=== PATIENT | female | born 1950 | race African-American/Black ===

== ENCOUNTER 2017-02-26 21:41 | Inpatient (IN) | payer OTHER, BC ==
[~2017-02-26] VITALS: Ht 170.2 cm; Wt 87.6 kg
--- NOTE | ~2017-02-26 | HC ---
[facility] [place] [address] CONSULTATION Name: NATALIA EHLM Dheeraj Room #: 438-P [facility] IN .R.#: [id number] Admission: 02/27/17 Attend Phys: Dc Altamirano MD Discharge: Date of : 51 Report #: [id number] THIS REPORT FOR: //name// CC: Dc Ingram HISTORY OF PRESENT ILLNESS: This patient presented to the Emergency Room with complaints of increasing shortness of breath and a nonproductive cough. She denied shaking chills or fever. 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 She has been followed by Dr. Aguilar since that original surgery in 2012 and is scheduled to undergo CT scanning for further evaluation. She is receiving long-term Tuesday, Tuesday, Tuesday hemodialysis through Dr. Edmond for end-stage renal disease and prior hypertension. PAST MEDICAL HISTORY: Has also been significant for anemia of chronic disease along with congestive heart failure. Her cancer diagnosis dated to 08/[address] Juárez resecting an 8.2 cm deep intramuscular mass revealing a high grade pleomorphic sarcoma. This tumor contained necrosis and was highly proliferative with an elevated Ki-67 60% to 70% and 30-40 mitoses per 10 high powered hernandez. She was suspected at that time to have pulmonary metastatic disease, but did not receive any systemic therapy due to her medical comorbidities/chronic renal failure. She was seen by Dr. Betts and received radiation therapy to the initial tumor bed. She was subsequently followed by Dr. Aguilar and in 01/2014 began hemodialysis for worsening renal failure. In 08/2016, one of the right lower lobe metastases approached the thoracic spine and she received further radiation therapy from Dr. Betts with a stereotactic approach to try to prevent complications. ALLERGIES: To IBUPROFEN and SEAFOOD. FAMILY HISTORY: Not contributory. SOCIAL HISTORY: She is a never smoker, nondrinker. REVIEW OF SYSTEMS: As in the history of present illness. MEDICATIONS: As listed on the MFR include allopurinol and sevelamer carbonate. PHYSICAL EXAMINATION: GENERAL: Shows her to be alert. She is currently undergoing hemodialysis. HEENT: Her mouth is clear. NECK: Supple. [facility] [address] [place] [address] CONSULTATION Name: NATALIA HELM Dheeraj Room #: 438-[facility] IN [facility].#: [id number] Admission: 02/27/17 Attend Phys: Dc Altamirano MD Discharge: Date of : 51 Report #: [id number] CHEST: Clear. BREASTS: Show no masses. ABDOMEN: No organomegaly or mass. EXTREMITIES: Show her fistula. SKIN: Normal turgor. NEUROLOGIC: No focal localized signs. PSYCHIATRIC: Not agitated or confused. LYMPHATICS: No palpable supraclavicular or axillary lymphadenopathy. ASSESSMENT: Metastatic high-grade soft tissue sarcoma. PLAN: The patient is to undergo CT scanning and can be reviewed and compared to our previous study from , which I will have clouded over. I would suspect that this will show further disease progression and on the prior scan, she was noted to have a sternal metastasis. She is scheduled to see Dr. Aguilar and follow up after scanning regarding further treatment, which at this point would need to be on a systemic basis. He earlier did not feel that she was a good candidate for Adriamycin and olaratumab though an echocardiogram has not been performed. Other options have included trabectedin and ponatinib. She would not be a candidate for systemic clinical trial. Thanks again for asking us to see her in consultation and allowing me to participate in her care. By: 1342 [id number] Bridgett Solitario MD /nt
--- NOTE | ~2017-02-26 | HC ---
[facility] [place] [address] CONSULTATION Name: NATALIA HELM Dheeraj Room #: 438-P [facility] IN .R.#: [id number] Admission: 02/27/17 Attend Phys: Dc Altamirano MD Discharge: Date of : 51 Report #: [id number] THIS REPORT FOR: //name// CC: Dc Ingram PRIMARY CARE PHYSICIAN: Sean Jackson . REFERRAL PHYSICIAN: Dc Altamirano MD REASON FOR REFERRAL: Cough. HISTORY OF PRESENT ILLNESS: The patient is a 66-year-old -[place] female who presents to emergency room with progressive cough. A pulmonary consultation was requested. The patient has significant medical history. She was diagnosed with sarcoma involving her right thigh in July 2013. About a year and a half ago, she was found to have pulmonary metastases, she believes, in the right lung. She had been undergoing radiation therapy to the chest. More recently, she was now found to have bilateral lung masses felt to be related to metastatic sarcoma. She has been followed by specialty department supervisor. She is also followed by oncologist, Dr. Aguilar. She is also followed by Dr. Hardy for chronic kidney disease. She was in her usual state of health until about 3-2 weeks ago, she started to develop a persistent nonproductive cough. Few days ago, she developed low-grade fever. She also developed mild productive yellowish sputum. She was seen as an outpatient regarding her cough. Thoughts were possibly related to allergies though antihistamines and antibiotics did not seem to help. Otherwise, denies any hemoptysis, chest pain. Denies any recent nausea, vomiting, diarrhea. She denies any history of chronic lung disease. She is a lifetime nonsmoker. She denies any chronic sinusitis or history of asthma. She denies any dyspepsia. PAST MEDICAL HISTORY: As mentioned above, sarcoma involving her right thigh, undergone resection with subsequent radiation therapy, initially diagnosed in July 2013, with known pulmonary metastases. Initially noted about a year and a half ago, now with bilateral pulmonary lung metastases. End-stage renal disease, undergoing hemodialysis. Long history of hypertension. PAST SURGICAL HISTORY: As mentioned above. Hysterectomy, right upper extremity AV fistula, history of dysrhythmias undergoing ablation. [address] [address] CONSULTATION Name: NATALIA HELM Room #: 438-P [facility] IN ..#: [id number] Admission: 02/27/17 Attend Phys: Dc Altamirano MD Discharge: Date of : 51 Report #: [id number] ALLERGIES: IBUPROFEN, SEAFOOD, both cause swelling. HOME MEDICATIONS: List reviewed. Include allopurinol, Renvela. FAMILY HISTORY: Remarkable for hypertension, diabetes mellitus. SOCIAL HISTORY: She is a lifetime nonsmoker. Denies any alcohol use. REVIEW OF SYSTEMS: As mentioned above, otherwise 10-point system review negative. PHYSICAL EXAMINATION: GENERAL: She is awake, alert, in no apparent distress. VITAL SIGNS: Temperature is 98 degrees Fahrenheit, pulse is 75, respiratory rate is 20, blood pressure 134/72 mmHg and saturation 96%. HEENT: Normocephalic, atraumatic. NECK: Supple without any lymphadenopathy or thyromegaly. CHEST: Breath sounds are good. No rales or wheezes. CARDIOVASCULAR: Heart sounds, normal S1, S2. No murmurs or gallop. There is no JVD. There is no carotid bruit. Pulses are 2+/4+ bilaterally. ABDOMEN: Soft, nontender. No organomegaly or masses felt. GENITOURINARY: Deferred. RECTAL: Deferred. EXTREMITIES: There is no edema, cyanosis or clubbing. DIAGNOSTIC AND LABORATORY DATA: Portable chest x-ray shows bilateral lung nodules, possible right-sided infiltrates and/or atelectasis. WBC is 17,300 without bandemia. Platelets are normal. Hemoglobin 7.2. Electrolytes: Sodium 135, potassium 3.6, chloride 96, CO2 is 31, BUN is 31, creatinine 6.3. IMPRESSION: 1. Persistent cough in this 66-year-old -[place]ovenian female with history of sarcoma with known pulmonary metastases. She has had a recent low grade fever with minimally productive yellowish sputum. Acute lower respiratory tract infection is suspected with possible pneumonia. Her bilateral lung nodules may be contributing to her cough. 2. Sarcoma, right thigh, originally diagnosed in 2012, status post resection, radiation now with known bilateral pulmonary metastases. The patient had received the radiation therapy to the chest. She is undergoing ongoing followup with repeat imaging study in fact in the very near future. Radiation lung injury should also be considered. 3. End-stage renal disease, undergoing hemodialysis. 4. Hypertension. 5. Anemia due to chronic disease. RECOMMENDATIONS: Agree with broad spectrum antibiotics for presumed infectious [address] [place] [address] CONSULTATION Name: NATALIA HELM Room #: 438-[facility] IN M.R.#: [id number] Admission: 02/27/17 Attend Phys: Dc Altamirano MD Discharge: Date of : 51 Report #: [id number] process. We will prescribe antitussives p.r.n. Sputum culture if possible. In regards to her lung nodules, I will defer any further workup as she has been followed closely by her specialty department supervisor and also oncologist. I understand the plans are for repeat imaging study next week and possible ongoing therapy for metastatic sarcoma. The findings were discussed with the patient. She voices understanding. Thank you for this consultation. <ELECTRONICALLY SIGNED> By: Clyde Vail MD 02/28/17 1151 [id number] Clyde Vail MD /nt
--- NOTE | ~2017-02-26 | HC ---
[facility] [place] [address] CONSULTATION Name: NATALIA HELM Dheeraj Room #: 438-P [facility] IN ..#: [id number] Admission: 02/27/17 Attend Phys: Dc Altamirano MD Discharge: Date of : 51 Report #: [id number] THIS REPORT FOR: //name// CC: Dc Ingram DATE OF SERVICE: 02/27/2017 NEPHROLOGY CONSULTATION REASON FOR CONSULTATION: End-stage renal disease, requiring dialysis. HISTORY OF PRESENT ILLNESS: This is a very pleasant 66-year-old female who we have known for a long time. She has end-stage renal disease and is a chronic hemodialysis patient. She normally dialyzes on a Tuesday, Tuesday and Tuesday basis at [facility]. She dialyzes on a Tuesday, Tuesday and Tuesday basis. Etiology of her end-stage renal disease is hypertension. She has been dialyzing regularly, including most recently on 02/25/2017. She dialyzes using a right arm fistula and her dialysis has been fairly uncomplicated. The reason for admission is persistent cough. She says this has been getting more severe over the past 3 weeks. It has not been responsive to antitussives. It has also not been responsive to additional ultrafiltration with dialysis. Upon presentation to the emergency room, she had a low-grade fever at 99.3 degrees Fahrenheit. In addition, she had some leukocytosis with white blood cell count 17.0. She had some mild left shift with 83 neutrophils, no bands, 10 lymphs, 5 monocytes and 2 eosinophils. Cultures were drawn and are pending. She was started on ceftriaxone and azithromycin. She tells me that she had a large sweat overnight. No further fever or chills. The cough persists. It has been nonproductive. Additional very pertinent history is that the patient was diagnosed in 2013 with a sarcoma of her right thigh. She received excision and radiation therapy after that. She continues to be followed at [facility] by Dr. Master Aguilar. In fact, she saw him just 6 days ago. There had been some concern of some developing nodules in her lungs. Her last scan had been either late September or early October of 2016. There was one nodule that was concerning enough that she went through a course of 5 doses of radiation therapy to that nodule. When she saw Dr. Aguilar 6 days ago, she expressed the concern of her cough. She was scheduled for repeat scan which was to be done on 03/01/2017. I asked the patient and she is uncertain if this is going to be a CAT scan or a PET scan. PAST MEDICAL HISTORY: Very pertinent for the sarcoma as noted above. She does not recall that any metastatic nodules have ever been biopsied. She has the end-stage renal disease, long-standing hypertension. She also has a history of gout and is chronically on some allopurinol. She has anemia of end-stage renal disease and is chronically on erythropoietin therapy and some vitamin [address] [address] CONSULTATION Name: NATALIA HELM Room #: 438-P [facility] IN M.R.#: [id number] Admission: 02/27/17 Attend Phys: Dc Altamirano MD Discharge: Date of : 51 Report #: [id number] supplementation. She has some secondary hyperparathyroidism. Previous admissions for supraventricular tachycardia, which was paroxysmal. She has had a previous hysterectomy for fibroids. MEDICATIONS: On admission include Renvela 800 mg t.i.d. with meals as a phosphate binder, allopurinol 300 mg daily. She recently was started on an antitussive, but she does not remember what it was. She gets vitamin D in the form of Hectorol, Aranesp for erythropoietin stimulation and iron at dialysis. ALLERGIES: IBUPROFEN, which she says caused her to break out in bruise. FAMILY HISTORY: No one else has been sick in the family recently. SOCIAL HISTORY: The patient is , lives in [place], [place]. She is retired. Nonsmoker. REVIEW OF SYSTEMS: Mainly positive for the cough. her cough was getting more severe. She had a good appetite. She says that has gone down somewhat because of the frequency of the cough. No sputum production. No hemoptysis. No pleuritic pain associated with the cough. Denies palpitations. No nausea or vomiting. No change in bowel habits. Dialysis has been fairly uneventful. No peripheral edema, she is unaware. She had the low-grade fever prior to admission. She had the one sweat last night and she said she had some more sweat about a week ago. No recent visual or hearing changes. PHYSICAL EXAMINATION: GENERAL: Very pleasant 66-year-old female resting comfortably, except when she takes a deep breath when she immediately starts coughing. VITAL SIGNS: Blood pressure 134/72, heart rate 75, temperature 98.1 and oxygen saturation 96%. HEENT EXAMINATION: Shows pupils are equal and reactive. Sclerae nonicteric. Oral mucosa is negative. NECK: Supple, without adenopathy, thyromegaly, JVD or bruit. CHEST: Fairly clear in all lung hernandez. I hear no rales, rhonchi or wheezes. No egophony. BACK: Shows no CVA tenderness. HEART: Has a regular rate and rhythm. ABDOMEN: Has active bowel sounds. It is soft and nontender. No organomegaly or masses. EXTREMITIES: Show no edema. She has a right upper arm fistula in place, with active bruit and thrill. DIAGNOSTIC DATA: Chest x-ray per my review shows a right basilar infiltrate in the potentially right middle lobe, although it is on an AP film only. Also little haziness in the right upper lobe, more dramatic are 3 nodules which appear to be more than a centimeter in size in the periphery of the left lung. [address] [address] CONSULTATION Name: NATALIA HELM Dheeraj Room #: 438[facility] IN [facility].#: [id number] Admission: 02/27/17 Attend Phys: Dc Altamirano MD Discharge: Date of : 51 Report #: [id number] LABORATORY DATA: Sodium 135, potassium 3.3, chloride 96, bicarbonate 32, BUN 29, creatinine 5.9 and calcium 8.4. White count 17.3, hemoglobin 7.3, hematocrit 22.9 and platelets 356,000. Differential as noted above. ASSESSMENT: 1. End-stage renal disease. She is due for dialysis tomorrow. We will order that. 2. Persistent cough. I think there are several components. She had a mild leukocytosis as well as a mild fever. She broke a severe sweat after she got antibiotics overnight, so certainly there does appear to be an infective component. Chest x-ray shows the mild right lower lobe infiltrate in the right upper lobe area that is a bit of concern. She also has these nodules in the left lung periphery. Part of the concern is potential for a post-obstructive process as opposed to her jordana infiltrate/pneumonia. Concerning the left lung nodules, she was set up for followup of her sarcoma, as noted above. We will contact Dr. Aguilar's office tomorrow and discuss with them what is the best course of action. If he was wanting a PET scan as opposed to a CT scan, the PET scan would need to be as an outpatient. Otherwise, the CT scan could be done here tomorrow and we will get oncology involved with that. With multiple nodules, we may want to get a biopsy to see what cell type is going on here which would suggest on that this might be metastatic disease from her sarcoma. She certainly could have another primary also. In the interim, we will continue her antibiotics. 3. Three years post right thigh sarcoma with resection and radiation therapy with concern of her metastatic disease as noted above. We will need to get oncology involved. 4. Hypertension, adequate control. 5. Anemia of end-stage renal disease. Continue erythropoietin supplementation. PLAN: 1. I have adjusted medications. 2. Dialysis tomorrow. 3. Again, we will contact Dr. Aguilar's office and make furthers plans pending that. <ELECTRONICALLY SIGNED> By: Benito Astudillo MD 02/28/17 0648 [id number] Jax Walsh MD /nt
[~2017-02-26 21:41] MED LIST: ACCUNEB SO1.25 MG/1; ALLOPURINOL 10100 M1 PO; ALLOPURINOL 30300 M2 PO; ASPIR 8181 MG PO; CARVEDILOL12.5 MG PO; COLACE 100 MG100 MG PO; ESTRACE1 MG PO; ESTRACE2 M3 PO; HTN MEDICATION; HYDROCHLOROTHIA25 M2 GT; KEFLEX500 M1 PO; NEPHROCAPS SOFT1 CAP PO; NORCO 5-325 TA1 EACH PO; NORVASC10 MG PO; PROPAFENONE 15150 MG PO; RENVELA800 MG PO; SENNA8.6 M1 PO; [UNRECOGNIZED DRUG - OTHER] TRANSDERM
[2017-02-26 21:53] VITALS: BP 168/80
[2017-02-26 22:20] LABS: HEMATOCRIT 22.9 % (37.0-47.0); HEMOGLOBIN 7.2 gm/dL (12.0-15.0); MCH 26.8 pg (26.0-34.0); MCHC 31.5 g/dL (28.0-37.0); MCV 85.1 fL (80.0-100.0); PLATELET COUNT 362 thou/uL (150-400); RBC 2.69 mil/uL (4.20-5.00); RDW 17.7 % (10.5-14.5)
[2017-02-26 22:23] LABS: CALCIUM 8.4 mg/dL (8.5-10.1); CREATININE 5.9 mg/dL (0.6-1.0); MANUAL DIFF YES; POTASSIUM 3.3 mmol/L (3.5-5.1)
[2017-02-26 22:43] LABS: ABSOLUTE NEUTROPHILS 14.1 thou/uL (1.4-8.2); TOTAL CELL COUNT 100
[2017-02-26 22:44] LABS: ANISOCYTOSIS 1+
[2017-02-27 00:23] VITALS: BP 156/73
[2017-02-27 01:46] VITALS: BP 144/66
[2017-02-27 03:47] LABS: HEMATOCRIT 22.9 % (37.0-47.0); HEMOGLOBIN 7.3 gm/dL (12.0-15.0); MCH 26.9 pg (26.0-34.0); MCHC 31.7 g/dL (28.0-37.0); MCV 84.8 fL (80.0-100.0); RBC 2.7 mil/uL (4.20-5.00); RDW 17.4 % (10.5-14.5); WBC 17.3 thou/uL (4.0-11.0)
[2017-02-27 03:55] LABS: CALCIUM 8.4 mg/dL (8.5-10.1); CREATININE 6.3 mg/dL (0.6-1.0); POTASSIUM 3.6 mmol/L (3.5-5.1)
[2017-02-27 04:23] VITALS: BP 143/85
[2017-02-27 08:27] VITALS: BP 134/72
[2017-02-27 19:55] VITALS: BP 144/79
[2017-02-28 03:48] LABS: HEMATOCRIT 24.4 % (37.0-47.0); HEMOGLOBIN 7.7 gm/dL (12.0-15.0); MCH 26.8 pg (26.0-34.0); MCHC 31.4 g/dL (28.0-37.0); MCV 85.4 fL (80.0-100.0); RBC 2.86 mil/uL (4.20-5.00); RDW 17.5 % (10.5-14.5); WBC 29.6 thou/uL (4.0-11.0)
[2017-02-28 04:08] VITALS: BP 133/74
[2017-02-28 04:12] LABS: ALBUMIN 1.8 g/dL (3.4-5.0); CALCIUM 8.4 mg/dL (8.5-10.1); PHOSPHORUS 4.1 mg/dL (2.5-4.9); POTASSIUM 4.1 mmol/L (3.5-5.1)
[2017-02-28 04:13] LABS: CREATININE 8.1 mg/dL (0.6-1.0)
[2017-02-28 16:00] VITALS: BP 128/61
[2017-02-28 19:18] VITALS: BP 132/55
[2017-03-01 03:24] LABS: HEMOGLOBIN 6.8 gm/dL (12.0-15.0)
[2017-03-01 03:26] LABS: HEMATOCRIT 21.4 % (37.0-47.0); MCH 26.9 pg (26.0-34.0); MCV 84.3 fL (80.0-100.0); RBC 2.54 mil/uL (4.20-5.00); RDW 17.4 % (10.5-14.5); WBC 15.6 thou/uL (4.0-11.0)
[2017-03-01 03:31] LABS: POTASSIUM 4.1 mmol/L (3.5-5.1)
[2017-03-01 03:32] LABS: CREATININE 5.1 mg/dL (0.6-1.0)
[2017-03-01 04:55] VITALS: BP 135/68
[2017-03-01 08:00] VITALS: BP 135/78
[2017-03-01 16:00] VITALS: BP 147/74
[2017-03-01 20:55] VITALS: BP 141/70
[2017-03-02 04:25] VITALS: BP 138/62
[2017-03-02 08:46] VITALS: BP 129/74
[2017-03-02 13:30] VITALS: BP 129/74
[2017-03-02] MEDS ORDERED: MUCINEX TA600 MG/TA1 PO (13:53)
[2017-03-02] MEDS ORDERED: AUGMENTIN 875875 MG PO (13:54)
== END 2017-03-02 18:35 | disposition home or self-care (01) | DRG 871 ==
LOC: ER 21:41 → 4S 02-27 00:07 → EROBS 02-27 00:07 → 4S 02-27 00:27
PROVIDERS: Emergency Medicine; Hospitalist; Internal Medicine Nephrology; Nurse Practitioner Family
PROC: 5A1D60Z (ICD-10-PCS; principal; 2017-02-28)
DX: A41.9 Sepsis, unspecified organism (principal); J18.9 Pneumonia, unspecified organism; N18.6 End stage renal disease; C49.9 Malignant neoplasm of connective and soft tissue, unspecified; C78.00 Secondary malignant neoplasm of unspecified lung; I13.2 Hypertensive heart and chronic kidney disease with heart failure and with stage 5 chronic kidney disease, or end stage renal disease; I50.9 Heart failure, unspecified; M10.9 Gout, unspecified; D63.8 Anemia in other chronic diseases classified elsewhere; D72.829 Elevated white blood cell count, unspecified; E03.9 Hypothyroidism, unspecified; Z82.49 Family history of ischemic heart disease and other diseases of the circulatory system; Z83.3 Family history of diabetes mellitus; Z90.710 Acquired absence of both cervix and uterus; Z88.6 Allergy status to analgesic agent; Z91.013 Allergy to seafood; Z99.2 Dependence on renal dialysis
CPT/HCPCS: 10100; 32100